=== PATIENT | female | born 1990 | race Two or more races ===

== ENCOUNTER 2018-10-04 19:57 | Emergency (ER) | payer SELFPAY ==
[2018-10-04] MEDS ORDERED: fentaNYL 100 MCG/2 ML INJ IVP ONE (20:24)
[2018-10-04] MEDS ORDERED: NS 1,000 ML IV ONE (20:24)
[2018-10-04] MEDS ORDERED: PANTOPRAZOLE SODIUM 40 MG TAB PO ONE (21:39)
[2018-10-04] MEDS ORDERED: MAG HYDROX/AL HYDROX/SIMETH 30 ML UDCUP PO ONE (21:40)
[2018-10-04] MEDS ORDERED: HYOSCYAMINE SULFATE 0.125 MG TAB PO ONE (21:40)
[2018-10-04] MEDS ORDERED: LIDOCAINE 2% VISCOUS 15 ML UDCUP PO ONE (21:40)
[2018-10-04] MEDS ORDERED: IOPAMIDOL (ISOVUE-300) 100 ML BTL ONE (21:54)
[2018-10-04 22:05] LABS: PLATELET COUNT 421 10^3/uL (150-400)
[2018-10-04] MEDS ORDERED: HYDROmorphONE/DILAUDID 2 MG/ML INJ IVP ONE (22:42)
--- NOTE | 2018-10-04 22:45 | EDPHY ---
H & P Stated Complaint: c/o abd pain- has feedinig with prior Staph infections- finish antb. 2days Time Seen by Provider: 10/04/18 20:08 HPI/ROS: CHIEF COMPLAINT: Abdominal pain HISTORY OF PRESENT ILLNESS: This is a 28-year-old female with a who resides in [place], reports she arrived here a week ago and is staying till after , presents with abdominal pain. Patient has a complex medical history. She reports that for many years she has had significant pain with eating, malnutrition, and failure to thrive. She underwent a gastric bypass surgery, had little resolution of her discomfort, and had a J-tube placed August 17. The J-tube placement was complicated by what sounds like a abscess in the abdominal wall (?) Treated with surgery and antibiotics. Patient initially was better but reports that on September 16 she developed additional abdominal pain and was placed back on antibiotics. She initially reported that she finished her antibiotics 2 days ago, however later during the emergency see department course she reports that she actually takes it for an additional 2 more days. She reports she is on amoxicillin. She has been told not to use her J tube since September 16. She presents now complaining of significant abdominal pain and feeling dehydrated. No fevers or chills. Denies any chest pain or shortness of breath. Denies any vomiting or diarrhea. No urinary complaints. Reports some lightheadedness but no fainting. REVIEW OF SYSTEMS: A comprehensive 10 system review of systems was reviewed and is otherwise negative aside from elements mentioned in the history of present illness and medical decision making. PAST MEDICAL HISTORY: Adult failure to thrive, J-tube placement. Currently uses oxycodone 15 mg twice daily for pain. Status post cholecystectomy and gastric bypass surgery. SOCIAL HISTORY: All of the patient's care has been in [place]. She has no records with her. VITAL SIGNS Reviewed by me. GENERAL: Well-developed, well-nourished, resting comfortably in no respiratory distress. HEENT: Atraumatic. Eyes: No icterus, no injection. Mouth: moist mucous membranes. No erythema or lesions. Neck: supple with no adenopathy. LUNGS: Clear to auscultation bilaterally, no wheezes, rhonchi or rales. CARDIAC: Regular rate and rhythm, no rubs, murmurs or gallops. ABDOMEN: Soft, moderate epigastric and left upper quadrant tenderness. J-tube is present in the abdominal wall with some serous discharge at the skin. Abdomen is not distended. BACK: No CVA tenderness. EXTREMITIES: No trauma. No edema. Range of motion is normal throughout. NEURO: Alert and oriented, grossly nonfocal. SKIN: Warm and dry, no rash. PSYCHIATRIC: Normal mentation, no agitation. - Personal History LMP (Females 10-55): Irregular Current Tetanus Diphtheria and Acellular Pertussis (TDAP): Unsure - Medical/Surgical History Other PMH: c/o prior staph infection/ abd infections - Social History Smoking Status: Former smoker Constitutional: Initial Vital Signs Temperature (C) 37.2 C 10/04/18 20:11 Heart Rate 86 10/04/18 20:11 Respiratory Rate 20 10/04/18 20:11 Blood Pressure 139/91 H 10/04/18 20:11 O2 Sat (%) 99 10/04/18 20:11 O2 Delivery Mode Room Air Allergies/Adverse Reactions: No Known Allergies Allergy (Unverified 10/04/18 20:11) Home Medications: Medication Instructions Recorded Ondansetron Odt [Zofran Odt 4 mg 4 mg PO Q6 PRN #8 tab 10/04/18 (RX)] oxyCODONE HCL [Roxicodone] 15 mg PO BID PRN #20 tablet 10/04/18 Medical Decision Making - Diagnostics Imaging Results: Imaging Impressions Abdomen CT 10/04/18 21:39 Impression: 1. J-tube is in place with possibly mild inflammatory changes associated with the tube without juarez abscess formation. 2. See above report for additional findings. Results called and discussed with Joann Talamantes MD on 10/04/2018 at 22:51. ED Course/Re-evaluation: Patient IV placed. Laboratory evaluation demonstrates no significant electrolyte abnormalities with the exception of slightly low potassium and albumin. CBC is remarkable for a hemoglobin of 8 and hematocrit of 26. Differential indicates significant microcytic anemia and I suspect this is anemia of chronic disease as well as nutritional anemia. I discussed with the patient who states that she has been told she has anemia in the past. CT scan is largely reassuring. There is no abscess in the abdominal wall. There is a small amount of soft tissue swelling around the J-tube site. No bowel obstruction. No free air. After receiving fluids and pain meds the patient reports feeling improved. At this point, we will discharge her with 10 day supply of her pain medicine as well as Zofran for nausea. She understands return to the emergency department if she is worse and she was also referred to follow up at [facility] or [facility] or [facility]. Differential Diagnosis: Differential diagnosis of the patient's complaints of abdominal pain was considered including but not limited to gastritis, pancreatitis, gastroparesis, intra-abdominal abscess, bowel obstruction. - Data Points Laboratory Results: Laboratory Results 10/04/18 20:45 10/04/18 10/04/18 10/04/18 21:04 21:03 20:45 WBC 5.78 10^3/uL 10^3/uL (3.80-9.50) RBC 4.03 10^6/uL L 10^6/uL (4.18-5.33) Hgb 8.1 g/dL L g/dL (12.6-16.3) Hct 26.6 % L % (38.0-47.0) MCV 66.0 fL L fL (81.5-99.8) MCH 20.1 pg L pg (27.9-34.1) MCHC 30.5 g/dL L g/dL (32.4-36.7) RDW 20.1 % H % (11.5-15.2) Plt Count 421 10^3/uL H 10^3/uL (150-400) MPV 8.6 fL L fL (8.7-11.7) Neut % (Auto) 55.7 % % (39.3-74.2) Lymph % (Auto) 36.0 % % (15.0-45.0) [place] % (Auto) 5.7 % % (4.5-13.0) Eos % (Auto) 2.1 % % (0.6-7.6) Baso % (Auto) 0.3 % % (0.3-1.7) Nucleat RBC Rel Count 0.3 % H % (0.0-0.2) Absolute Neuts (auto) 3.22 10^3/uL 10^3/uL (1.70-6.50) Absolute Lymphs (auto) 2.08 10^3/uL 10^3/uL (1.00-3.00) Absolute Monos (auto) 0.33 10^3/uL 10^3/uL (0.30-0.80) Absolute Eos (auto) 0.12 10^3/uL 10^3/uL (0.03-0.40) Absolute Basos (auto) 0.02 10^3/uL 10^3/uL (0.02-0.10) Absolute Nucleated RBC 0.02 10^3/uL H 10^3/uL (0-0.01) Immature Gran % 0.2 % % (0.0-1.1) Immature Gran # 0.01 10^3/uL 10^3/uL (0.00-0.10) Platelet Estimate ADEQUATE (ADEQ) Hypochromasia 1+ H Microcytic Cells 1+ H Smear Review By Pending POC Sodium 145 mEq/L mEq/L (135-145) POC Potassium 3.2 mEq/L L mEq/L (3.3-5.0) POC Chloride 105.0 mEq/L mEq/L (97-110) POC Total CO2 27 mEq/L mEq/L (22-31) POC BUN 14 mg/dL mg/dL (7-23) POC Creatinine 0.5 mg/dL L mg/dL (0.6-1.0) POC Glucose 95 mg/dL mg/dL (70-100) POC Lactic Acid Ryan 0.8 mmol/L mmol/L (0.7-2.1) POC Calcium 8.7 mg/dL mg/dL (8.5-10.4) POC Total Bilirubin 0.5 mg/dL mg/dL (0.1-1.4) POC AST 23 IU/L IU/L (14-46) POC ALT 24 IU/L IU/L (9-52) POC Alk Phosphatase 83 IU/L IU/L (38-126) POC Total Protein 6.4 g/dL g/dL (6.3-8.2) POC Albumin 3.1 g/dL L g/dL (3.5-5.0) Medications Given: Discontinued Medications Al Hydroxide/Mg Hydroxide (Maalox Susp) 30 ml PO ONCE ONE Stop: 10/04/18 21:41 Last Admin: 10/04/18 22:27 Dose: 30 ml Fentanyl (Sublimaze) 75 mcg IVP EDNOW ONE Stop: 10/04/18 20:25 Last Admin: 10/04/18 20:58 Dose: 75 mcg Hydromorphone HCl (Dilaudid) 0.5 mg IVP EDNOW ONE Stop: 10/04/18 22:43 Last Admin: 10/04/18 23:00 Dose: 0.5 mg Hyoscyamine Sulfate (Levsin, Hyomax-Sl) 0.25 mg PO ONCE ONE Stop: 10/04/18 21:41 Last Admin: 10/04/18 22:27 Dose: 0.25 mg Sodium Chloride (Ns) 1,000 mls @ 0 mls/hr IV ONCE ONE; Wide Open PRN Reason: Protocol Stop: 10/04/18 20:25 Last Admin: 10/04/18 20:58 Dose: 1,000 mls Lidocaine (Lidocaine 2% Viscous) 15 ml PO ONCE ONE Stop: 10/04/18 21:41 Last Admin: 10/04/18 22:27 Dose: 15 ml Pantoprazole Sodium (Protonix) 40 mg PO EDNOW ONE Stop: 10/04/18 21:40 Last Admin: 10/04/18 22:27 Dose: 40 mg Point of Care Test Results: Chemistry 10/04/18 21:04 POC Sodium 145 mEq/L mEq/L (135-145) POC Potassium 3.2 mEq/L L mEq/L (3.3-5.0) POC Chloride 105.0 mEq/L mEq/L (97-110) POC Total CO2 27 mEq/L mEq/L (22-31) POC BUN 14 mg/dL mg/dL (7-23) POC Creatinine 0.5 mg/dL L mg/dL (0.6-1.0) POC Glucose 95 mg/dL mg/dL (70-100) POC Calcium 8.7 mg/dL mg/dL (8.5-10.4) POC Total Bilirubin 0.5 mg/dL mg/dL (0.1-1.4) POC AST 23 IU/L IU/L (14-46) POC ALT 24 IU/L IU/L (9-52) POC Alk Phosphatase 83 IU/L IU/L (38-126) POC Total Protein 6.4 g/dL g/dL (6.3-8.2) POC Albumin 3.1 g/dL L g/dL (3.5-5.0) Blood Gas/Lactic Acid-Venous 10/04/18 21:03 POC Lactic Acid Ryan 0.8 mmol/L mmol/L (0.7-2.1) Urine Collection Date 10/04/18 Collection Time 21:07 HCG Results Negative Urine Dip Collection Date 10/04/18 Collection Time 21:10 Specific [place] (1.002-1.030) 1.020 PH (5.0-7.5) 7.5 Leukocytes (Negative) Negative Nitrites (Negative) Negative Protein (Negative) Negative Glucose (Negative) Negative Ketones (Negative) Negative Urobilnogen (0.2-1.0 EU) 1.0 Bilirubin (Negative) Negative Blood (Negative) Negative Departure - Departure Disposition: Home, Routine, Self-Care Clinical Impression: Abdominal pain Qualifiers: Abdominal location: upper abdomen, unspecified Qualified Code(s): R10.10 - Upper abdominal pain, unspecified Condition: Good Instructions: Chronic Abdominal Pain (ED) Additional Instructions: There is no remaining abscess noted on your CT scan tonight. There is no sign of a bowel obstruction. You do have a very low hemoglobin and hematocrit is 8 and 26. Looking through the remainder of your main labs seems like this may be chronic. You been given a copy of the CT scan obtained here. Please take this to your physicians in [place]. Please follow up with [facility] or [facility] or [facility] if you're not improving over the next several days. Return to the emergency department or seek care urgently if you develop abdominal distention, severe pain, vomiting, fevers, or other concerns. For your abdominal pain, I suggested you start with a bland diet and advance as tolerated. This means start with clear liquids such as water, Gatorade, juice, flat non- caffeinated soda. If you tolerate clear liquids, then you may add bland foods such as bananas, rice, or toast. If you do not have any worsening of your symptoms, you may begin to resume a regular diet. I also recommend that she begin taking omeprazole, this is available over-the- counter, for 2 week course. You been given a 10 day supply of your regular pain medications. You have also been given Zofran as to use as needed for nausea and vomiting. Referrals: NONE *PRIMARY CARE P,. [Primary Care Provider] - As per Instructions [facility] [Clinic] - As per Instructions Prescriptions: Ondansetron Odt [Zofran Odt 4 mg (RX)] 4 mg PO Q6 PRN #8 tab PRN Reason: Nausea oxyCODONE HCL [Roxicodone] 15 mg PO BID PRN #20 tablet PRN Reason: pain
[2018-10-04 23:33] VITALS: BP 123/66
== END 2018-10-04 23:31 | disposition home or self-care (01) ==
LOC: CED 19:57
DX: R10.10 Upper abdominal pain, unspecified (principal)
CPT/HCPCS: 74177-PO; 80053-PO; 83605-PO; 96374; J1170; J3010; Q9967